=== PATIENT | female | born 1935 | race Caucasian/White ===

== ENCOUNTER 2018-01-09 11:45 | Inpatient (IN) | payer OTHER, MEDICAID ==
[~2018-01-09] VITALS: Ht 157.5 cm; Wt 94.8 kg
[2018-01-09 11:45] VITALS: BP_SYST 185
[~2018-01-09 11:45] MED LIST: AMLO2.5T50 PO; ATEN-41 PO; DEXL60CA3 PO; HYDR12.55 PO; IBUP-1969 PO; LEVO250T58 PO; MIRT15TA7 PO; PREG75CA PO; ROSU10TA PO; SITA1TBM4 PO; VALS160T2 PO
[2018-01-09] MEDS ORDERED: VECURONIUM BROMIDE 10 MG/VIAL (NORCURON) IV ONE (11:46)
[2018-01-09] MEDS ORDERED: ETOMIDATE 20 MG/ 10 ML VIAL (AMIDATE) IVP ONE (11:46)
[2018-01-09] MEDS ORDERED: ONDANSETRON HCL 4 MG/2 ML VIAL IVP ONE (12:00)
[2018-01-09] MEDS ORDERED: MORPHINE 2 MG/ML INJ. SYRINGE IVP ONE ×2 (12:00→13:15)
[2018-01-09 12:17] LABS: EOSINOPHILS # (AUTO) 0.1 K/uL (0.0-0.4); LYMPHOCYTES # (AUTO) 1.4 K/uL (1.0-5.5); MONOCYTES # (AUTO) 0.5 K/uL (0.0-1.0); RED BLOOD CELL COUNT(AUTO) 5.55 MIL/uL (4.2-6.2)
[2018-01-09 12:19] LABS: BASOPHILS # (AUTO) 0.1 K/uL (0.0-0.2); BASOPHILS % (AUTO) 0.6 % (0.0-2.0); EOSINOPHILS % (AUTO) 0.7 % (0.0-4.0); HEMATOCRIT 37.6 % (36-48); HEMOGLOBIN 11.7 g/dL (12.0-16.0); LYMPHOCYTES % (AUTO) 15.8 % (20.5-51.5); MEAN CORPUSCULAR HEMOGLOBIN 21 pg (27-31); MEAN CORPUSCULAR HGB CONC 31 % (32-36); MEAN CORPUSCULAR VOLUME 68 fL (79.0-98.0); MONOCYTES % (AUTO) 5.2 % (1.7-9.3); NEUTROPHILS # (AUTO) 6.7 K/uL (1.8-7.7); NEUTROPHILS % (AUTO) 77.7 % (40.0-70.0); PLATELET COUNT (AUTO) 284 K/uL (130-430); RED CELL DISTRIBUTION WIDTH 20.8 % (9.0-15.0); WHITE BLOOD COUNT (AUTO) 8.8 K/uL (4.8-10.8)
[2018-01-09 12:20] LABS: ANION GAP 11 (5-15); CALCIUM 9.5 mg/dL (8.4-11.0); CHLORIDE 98 mmol/L (98-107); CREATININE 1.27 mg/dL (0.55-1.30); GLUCOSE 268 mg/dL (70-99); POTASSIUM 4.1 mmol/L (3.5-5.1); SODIUM SERUM 135 mmol/L (136-145); UREA NITROGEN, BLOOD 26 mg/dL (8-21)
[2018-01-09 12:25] LABS: ALANINE AMINOTRANSFERASE 26 U/L (12-78); ASPARTATE AMINOTRANSFERASE 15 U/L (10-37); LIPASE 64 U/L (73-393); PROTHROMBIN TIME 10.5 SECS (9.5-12.5); TOTAL BILIRUBIN 0.6 mg/dL (0.0-1.0)
[2018-01-09] MEDS ORDERED: FAMOTIDINE PF 20 MG/2 ML VIAL IVP ONE (13:45)
[2018-01-09 15:26] LABS: BILIRUBIN,URINE NEGATIVE (NEGATIVE); BLOOD, URINE NEGATIVE (NEGATIVE); CLARITY/URINE CLEAR (CLEAR); COLOR,URINE YELLOW (YELLOW); GLUCOSE,URINE 3+ (NEGATIVE); KETONES,URINE NEGATIVE (NEGATIVE); LEUKOCYTE ESTERASE ,URINE NEGATIVE (NEGATIVE); NITRITE, URINE NEGATIVE (NEGATIVE); PROTEIN URINE NEGATIVE (NEGATIVE); UROBILINOGEN,URINE 0.2 (0.2-1.0)
[2018-01-09] MEDS ORDERED: ONDANSETRON HCL 4 MG/2 ML VIAL IVP PRN (15:30)
[2018-01-09 15:46] VITALS: BP_SYST 141
[2018-01-09 15:58] LABS: BACTERIA,URINE FEW /HPF (None Seen); MUCUS,URINE None Seen /LPF (None Seen); RBC,URINE NONE SEEN /HPF (0-3); WBC,URINE 0-3 /HPF (0-3)
[2018-01-09 16:00] VITALS: BP_SYST 141
[2018-01-09 20:10] VITALS: BP_SYST 147
[2018-01-09] MEDS: MORPHINE 4 MG/ML INJ. SYRINGE IVP PRN (20:56)
[2018-01-09] MEDS ORDERED: PANTOPRAZOLE SODIUM 40 MG/VIAL (PROTONIX) IVP ONE (21:00)
[2018-01-09] MEDS ORDERED: PREGABALIN 75 MG CAPSULE (LYRICA) PO ONE (21:30)
[2018-01-09] MEDS ORDERED: VALSARTAN 160 MG TABLET (DIOVAN) PO ONE (21:30)
[2018-01-09] MEDS ORDERED: amLODIPine BESYLATE 5 MG TABLET PO ONE (21:30)
[2018-01-09] MEDS: D5/0.45 NS 1,000 ML IV SCH (22:59)
[2018-01-09] MEDS: ZOLPIDEM TARTRATE 5 MG TABLET PO PRN (23:00)
[2018-01-10 04:10] VITALS: BP_SYST 132
[2018-01-10] MEDS ORDERED: SIMETHICONE 40 MG/0.6 ML ML ONE (07:10)
[2018-01-10] MEDS ORDERED: fentaNYL CITRATE/PF 100 MCG/2 ML AMP ONE (07:10)
[2018-01-10] MEDS ORDERED: MIDAZOLAM HCL 5 MG/5 ML VIAL ONE (07:10)
[2018-01-10 08:40] VITALS: BP_SYST 141
[2018-01-10] MEDS: PANTOPRAZOLE SODIUM 40 MG/VIAL (PROTONIX) IVP SCH (10:59)
[2018-01-10] MEDS: MORPHINE 4 MG/ML INJ. SYRINGE IVP PRN ×3 (11:33→23:32)
[2018-01-10 12:35] VITALS: BP_SYST 159
[2018-01-10] MEDS: D5/0.45 NS 1,000 ML IV SCH (15:52)
[2018-01-10 16:35] VITALS: BP_SYST 152
[2018-01-10] MEDS: INSULIN REGULAR, HUMAN 100 UNITS/ML, 10 ML VIAL (novoLIN R) SUBCUT PRN ×2 (17:09→20:55)
[2018-01-10 19:00] VITALS: BP_SYST 135
[2018-01-10 20:00] VITALS: BP_SYST 135
[2018-01-10] MEDS ORDERED: MIRTAZAPINE 15 MG TABLET PO PRN (21:30)
[2018-01-10] MEDS ORDERED: ROSUVASTATIN CALCIUM 5 MG/TAB (CRESTOR) PO SCH (21:30)
[2018-01-10] MEDS ORDERED: IBUPROFEN 600 MG TABLET PO PRN (21:30)
[2018-01-10] MEDS ORDERED: LOSARTAN POTASSIUM 50 MG TABLET (COZAAR) PO SCH (21:30)
[2018-01-10] MEDS: PREGABALIN 75 MG CAPSULE (LYRICA) PO SCH (23:29)
[2018-01-10] MEDS: ATENOLOL 25 MG TABLET(TENORMIN) PO SCH (23:30)
[2018-01-10] MEDS: ZOLPIDEM TARTRATE 5 MG TABLET PO PRN (23:33)
[2018-01-11 00:20] VITALS: BP_SYST 176
[2018-01-11] MEDS: D5/0.45 NS 1,000 ML IV SCH ×2 (02:06→11:13)
[2018-01-11 04:14] VITALS: BP_SYST 161
[2018-01-11] MEDS: MORPHINE 4 MG/ML INJ. SYRINGE IVP PRN ×2 (06:54→19:19)
[2018-01-11 07:35] VITALS: BP_SYST 148
[2018-01-11] MEDS: PANTOPRAZOLE SODIUM 40 MG/VIAL (PROTONIX) IVP SCH (10:52)
[2018-01-11] MEDS: ATENOLOL 25 MG TABLET(TENORMIN) PO SCH (10:53)
[2018-01-11] MEDS: PREGABALIN 75 MG CAPSULE (LYRICA) PO SCH ×2 (10:53→21:07)
[2018-01-11] MEDS: INSULIN REGULAR, HUMAN 100 UNITS/ML, 10 ML VIAL (novoLIN R) SUBCUT PRN ×3 (11:10→21:12)
[2018-01-11 12:12] VITALS: BP_SYST 140
[2018-01-11] MEDS ORDERED: VALSARTAN 160 MG TABLET (DIOVAN) PO ONE (13:00)
[2018-01-11 16:00] VITALS: BP_SYST 149
[2018-01-11 19:10] LABS: ANION GAP 10 (5-15); CALCIUM 8.6 mg/dL (8.4-11.0); CHLORIDE 103 mmol/L (98-107); CREATININE 1.09 mg/dL (0.55-1.30); GLUCOSE 251 mg/dL (70-99); POTASSIUM 3.3 mmol/L (3.5-5.1); SODIUM SERUM 138 mmol/L (136-145); UREA NITROGEN, BLOOD 17 mg/dL (8-21)
[2018-01-11 19:25] VITALS: BP_SYST 156
[2018-01-11] MEDS: ATORVASTATIN 20 MG TABLET PO SCH (21:07)
[2018-01-11] MEDS: ZOLPIDEM TARTRATE 5 MG TABLET PO PRN (21:07)
[2018-01-12 00:08] VITALS: BP_SYST 137
[2018-01-12] MEDS: MORPHINE 4 MG/ML INJ. SYRINGE IVP PRN ×3 (04:48→20:55)
[2018-01-12] MEDS: D5/0.45 NS 1,000 ML IV SCH ×2 (06:04→14:39)
[2018-01-12] MEDS: INSULIN REGULAR, HUMAN 100 UNITS/ML, 10 ML VIAL (novoLIN R) SUBCUT PRN ×4 (06:08→21:03)
[2018-01-12 06:49] LABS: BASOPHILS % (AUTO) 0.5 % (0.0-2.0); EOSINOPHILS # (AUTO) 0.5 K/uL (0.0-0.4); HEMATOCRIT 34.9 % (36-48); HEMOGLOBIN 11.1 g/dL (12.0-16.0); LYMPHOCYTES # (AUTO) 1.9 K/uL (1.0-5.5); LYMPHOCYTES % (AUTO) 20.3 % (20.5-51.5); MEAN CORPUSCULAR HEMOGLOBIN 22 pg (27-31); MEAN CORPUSCULAR HGB CONC 32 % (32-36); MEAN CORPUSCULAR VOLUME 69 fL (79.0-98.0); MONOCYTES # (AUTO) 0.8 K/uL (0.0-1.0); MONOCYTES % (AUTO) 8.3 % (1.7-9.3); NEUTROPHILS # (AUTO) 6.1 K/uL (1.8-7.7); NEUTROPHILS % (AUTO) 65.9 % (40.0-70.0); PLATELET COUNT (AUTO) 250 K/uL (130-430); RED BLOOD CELL COUNT(AUTO) 5.05 MIL/uL (4.2-6.2); RED CELL DISTRIBUTION WIDTH 20.4 % (9.0-15.0); WHITE BLOOD COUNT (AUTO) 9.3 K/uL (4.8-10.8)
[2018-01-12 06:51] LABS: ANION GAP 8 (5-15); CALCIUM 8.4 mg/dL (8.4-11.0); CHLORIDE 103 mmol/L (98-107); CREATININE 1.07 mg/dL (0.55-1.30); GLUCOSE 221 mg/dL (70-99); POTASSIUM 3.3 mmol/L (3.5-5.1); SODIUM SERUM 136 mmol/L (136-145); UREA NITROGEN, BLOOD 17 mg/dL (8-21)
[2018-01-12 08:00] VITALS: BP_SYST 138
[2018-01-12] MEDS: PREGABALIN 75 MG CAPSULE (LYRICA) PO SCH ×2 (08:44→20:54)
[2018-01-12] MEDS: VALSARTAN 160 MG TABLET (DIOVAN) PO SCH (08:44)
[2018-01-12] MEDS: PANTOPRAZOLE SODIUM 40 MG/VIAL (PROTONIX) IVP SCH (08:44)
[2018-01-12] MEDS: ATENOLOL 25 MG TABLET(TENORMIN) PO SCH (08:45)
[2018-01-12] MEDS ORDERED: IOHEXOL 350 mgI/mL, 150 ML INFUS..BTL IV ONE (09:55)
[2018-01-12] MEDS: METOCLOPRAMIDE HCL 10 MG/2 ML VIAL IVP SCH ×3 (12:02→23:40)
[2018-01-12 12:53] VITALS: BP_SYST 158
[2018-01-12] MEDS ORDERED: POTASSIUM CHLORIDE 20 MEQ TAB.PRT.SR PO ONE (17:00)
[2018-01-12 17:25] VITALS: BP_SYST 168
[2018-01-12 20:00] VITALS: BP_SYST 156
[2018-01-12] MEDS: ATORVASTATIN 20 MG TABLET PO SCH (20:54)
[2018-01-12] MEDS: ZOLPIDEM TARTRATE 5 MG TABLET PO PRN (22:35)
[2018-01-13 00:18] VITALS: BP_SYST 135
[2018-01-13] MEDS: METOCLOPRAMIDE HCL 10 MG/2 ML VIAL IVP SCH ×2 (06:17→11:50)
[2018-01-13] MEDS: INSULIN REGULAR, HUMAN 100 UNITS/ML, 10 ML VIAL (novoLIN R) SUBCUT PRN ×2 (06:19→11:47)
[2018-01-13 08:00] VITALS: BP_SYST 166
[2018-01-13] MEDS: PANTOPRAZOLE SODIUM 40 MG/VIAL (PROTONIX) IVP SCH (08:18)
[2018-01-13] MEDS: ATENOLOL 25 MG TABLET(TENORMIN) PO SCH (08:19)
[2018-01-13] MEDS: VALSARTAN 160 MG TABLET (DIOVAN) PO SCH (08:19)
[2018-01-13] MEDS: PREGABALIN 75 MG CAPSULE (LYRICA) PO SCH (08:20)
[2018-01-13] MEDS: MORPHINE 4 MG/ML INJ. SYRINGE IVP PRN (08:29)
[2018-01-13] MEDS ORDERED: SUCRALFATE 1 GM TABLET PO ONE (09:30)
[2018-01-13 11:18] VITALS: BP_SYST 160
[2018-01-13 11:57] VITALS: BP_SYST 160
[2018-01-13] MEDS ORDERED: SUCRALFATE 1 GM TABLET PO SCH (15:00)
== END 2018-01-13 12:37 | disposition home or self-care (01) | DRG 392 ==
LOC: EDBD 11:45 → SED 11:45 → SMU 14:49
PROVIDERS: ADMIT Family Medicine; ATTEND Family Medicine
PROC: 0DB68ZX Excision of Stomach, Via Natural or Artificial Opening Endoscopic, Diagnostic (ICD-10-PCS; 2018-01-10)
PROC: 0DB58ZX Excision of Esophagus, Via Natural or Artificial Opening Endoscopic, Diagnostic (ICD-10-PCS; 2018-01-10)
PROC: 0DB98ZX Excision of Duodenum, Via Natural or Artificial Opening Endoscopic, Diagnostic (ICD-10-PCS; principal; 2018-01-10 08:00)
DX: K29.60 Other gastritis without bleeding (principal); I10 Essential (primary) hypertension; E78.00 Pure hypercholesterolemia, unspecified; E11.9 Type 2 diabetes mellitus without complications; E78.5 Hyperlipidemia, unspecified; I25.10 Atherosclerotic heart disease of native coronary artery without angina pectoris; K21.9 Gastro-esophageal reflux disease without esophagitis; F32.9 Major depressive disorder, single episode, unspecified; E07.9 Disorder of thyroid, unspecified; Z95.1 Presence of aortocoronary bypass graft
CPT/HCPCS: 36415; 43239; 71045; 72191; 74175; 76700-TC; 78264-TC; 80048; 80053; 81000-TC; 82962; 83690-TC; 83880; 84484; 85025; 85610-TC; 85730-TC; 87081; 88305; 88312; 88313; 93005; 96374; 96375; 96376; 99285; A9541; C9113; J2250; J2270; J2405; J2765; J3010; J3490; J7030; Q9967

== ENCOUNTER 2018-05-01 09:57 | Outpatient (CLI) | payer OTHER, MEDICAID ==
[~2018-05-01 09:57] MED LIST changes: +ATEN-166 PO; +CLOP75TA2 PO; -DEXL60CA3 PO; +DEXL60CA4 PO; +GLIP10TA11 PO; -IBUP-1969 PO; +LEVO125T8 PO; -LEVO250T58 PO; +LINA5TAB2 PO; +MIRT30TA3 PO; +SER25 PO; +TRAM50TA92 PO
== END 2018-05-01 13:00 | disposition home or self-care (01) ==
LOC: SUS 09:57
PROVIDERS: ATTEND Internal Medicine
DX: I70.202 Unspecified atherosclerosis of native arteries of extremities, left leg (principal); I70.201 Unspecified atherosclerosis of native arteries of extremities, right leg
CPT/HCPCS: 93923; 93970

== ENCOUNTER 2018-09-22 15:15 | Inpatient (IN) | payer OTHER, MEDICAID ==
[~2018-09-22] VITALS: Ht 160 cm; Wt 91.2 kg
[2018-09-22 15:22] VITALS: BP_SYST 166
[2018-09-22] MEDS ORDERED: NACL 0.9% 1,000 ML IV ONE (15:38)
[2018-09-22] MEDS ORDERED: ONDANSETRON HCL 4 MG/2 ML VIAL IVP ONE (15:45)
[2018-09-22] MEDS ORDERED: MORPHINE 4 MG/ML INJ. SYRINGE IVP ONE ×2 (15:45→18:00)
[2018-09-22 16:25] LABS: HEMATOCRIT 40.7 % (36-48); MEAN CORPUSCULAR VOLUME 75 fL (79.0-98.0); RED BLOOD CELL COUNT(AUTO) 5.42 MIL/uL (4.2-6.2); WHITE BLOOD COUNT (AUTO) 11.4 K/uL (4.8-10.8)
[2018-09-22 16:26] LABS: BASOPHILS % (AUTO) 0.3 % (0.0-2.0); LYMPHOCYTES # (AUTO) 1.1 K/uL (1.0-5.5); LYMPHOCYTES % (AUTO) 9.9 % (20.5-51.5); MEAN CORPUSCULAR HEMOGLOBIN 24 pg (27-31); MEAN CORPUSCULAR HGB CONC 32 % (32-36); MONOCYTES # (AUTO) 0.2 K/uL (0.0-1.0); MONOCYTES % (AUTO) 1.4 % (1.7-9.3); NEUTROPHILS # (AUTO) 10.1 K/uL (1.8-7.7); NEUTROPHILS % (AUTO) 88.4 % (40.0-70.0); PLATELET COUNT (AUTO) 315 K/uL (130-430); RED CELL DISTRIBUTION WIDTH 20.6 % (9.0-15.0)
[2018-09-22 16:32] LABS: ANION GAP 13 (5-15); CALCIUM 8.8 mg/dL (8.4-11.0); CHLORIDE 100 mmol/L (98-107); CREATININE 1.61 mg/dL (0.55-1.30); GLUCOSE 199 mg/dL (70-99); POTASSIUM 4.5 mmol/L (3.5-5.1); SODIUM SERUM 135 mmol/L (136-145); UREA NITROGEN, BLOOD 47 mg/dL (8-21)
[2018-09-22 16:38] LABS: ALANINE AMINOTRANSFERASE 38 U/L (12-78); ALBUMIN 3.8 g/dL (3.4-4.8); AMYLASE 36 U/L (0-100); ASPARTATE AMINOTRANSFERASE 15 U/L (10-37); LIPASE 74 U/L (73-393); TOTAL BILIRUBIN 0.3 mg/dL (0.0-1.0)
[2018-09-22 17:03] LABS: BILIRUBIN,URINE NEGATIVE (NEGATIVE); BLOOD, URINE NEGATIVE (NEGATIVE); CLARITY/URINE CLEAR (CLEAR); COLOR,URINE YELLOW (YELLOW); GLUCOSE,URINE 3+ (NEGATIVE); KETONES,URINE NEGATIVE (NEGATIVE); LEUKOCYTE ESTERASE ,URINE 1+ (NEGATIVE); NITRITE, URINE NEGATIVE (NEGATIVE); PROTEIN URINE NEGATIVE (NEGATIVE); UROBILINOGEN,URINE 0.2 (0.2-1.0)
[2018-09-22 17:15] LABS: BACTERIA,URINE FEW /HPF (None Seen); RBC,URINE 0-3 /HPF (0-3)
[2018-09-22 17:16] LABS: MUCUS,URINE None Seen /LPF (None Seen)
[2018-09-22] MEDS ORDERED: GABA-531 PO (17:48)
[2018-09-22] MEDS ORDERED: GLIP10TA PO (17:48)
[2018-09-22] MEDS ORDERED: VACEPA PO (17:48)
[2018-09-22] MEDS ORDERED: LINA5TAB2 PO (17:48)
[2018-09-22] MEDS ORDERED: PRED20TA PO (17:48)
[2018-09-22] MEDS ORDERED: QUET100T33 PO (17:48)
[2018-09-22] MEDS ORDERED: OLME1TAB16 PO (17:48)
[2018-09-22] MEDS ORDERED: DAPA1TAB5 PO (17:48)
[2018-09-22] MEDS ORDERED: INSU100I24 SQ (17:48)
[2018-09-22] MEDS ORDERED: MORP15TA60 PO (17:48)
[2018-09-22] MEDS ORDERED: ISOS40TA12 PO (17:48)
[2018-09-22] MEDS ORDERED: ICOS1CAP PO (17:48)
[2018-09-22] MEDS ORDERED: OMEP40CA33 PO (17:48)
[2018-09-22] MEDS ORDERED: ATEN50TA PO (17:48)
[2018-09-22] MEDS ORDERED: CELE200C PO (17:48)
[2018-09-22 17:55] LABS: PROTHROMBIN TIME 10.4 SECS (9.5-12.5)
[2018-09-22] MEDS ORDERED: cefTRIAXone 1 GM IVPB PREMIX 50 ML IV ONE (18:00)
[2018-09-22 19:37] VITALS: BP_SYST 152
[2018-09-22] MEDS ORDERED: ACETAMINOPHEN 325 MG TABLET PO PRN (21:00)
[2018-09-22] MEDS ORDERED: HEPARIN 25,000 UNITS/D5W 250ML 250 ML IV PRN (21:00)
[2018-09-22] MEDS ORDERED: OMEPRAZOLE 20 MG CAPSULE.DR (PriLOSEC) PO SCH (21:30)
[2018-09-22] MEDS ORDERED: MORPHINE 4 MG/ML INJ. SYRINGE IVP SCH (21:30)
[2018-09-22] MEDS ORDERED: LEVOFLOXACIN 500 MG/D5W 100 ML IV ONE ×2 (21:30→22:56)
[2018-09-22] MEDS ORDERED: HEPARIN SODIUM,PORCINE 2000 UNITS/0.4 ML BOLUS IVP PRN (21:30)
[2018-09-22] MEDS ORDERED: HEPARIN SODIUM,PORCINE 3000 UNITS/0.6 ML BOLUS IVP PRN (21:30)
[2018-09-22] MEDS ORDERED: MORPHINE SULFATE 15 MG TABLET.ER PO SCH (21:30)
[2018-09-22] MEDS ORDERED: MORPHINE SULFATE 10 MG/ML VIAL IVP SCH (21:30)
[2018-09-22] MEDS ORDERED: DEXTROSE 50% JECT 50 ML DISP.SYRIN IVP PRN (21:30)
[2018-09-22] MEDS ORDERED: ONDANSETRON HCL 4 MG/2 ML VIAL IVP PRN (21:45)
[2018-09-22] MEDS: 0.45% NACL 1,000 ML IV SCH (22:34)
[2018-09-22 22:55] VITALS: BP_SYST 159
[2018-09-22] MEDS: MORPHINE 4 MG/ML INJ. SYRINGE IVP PRN (22:58)
[2018-09-22] MEDS ORDERED: GABAPENTIN 100 MG CAPSULE PO ONE (23:00)
[2018-09-22] MEDS ORDERED: HEPARIN SODIUM,PORCINE 5000 UNITS/ML VIAL IVP SCH (23:00)
[2018-09-22] MEDS ORDERED: HYDROcodone/ACETAMIN 5-325 MG TAB (NORCO/ VICODIN) PO SCH (23:00)
[2018-09-22] MEDS ORDERED: QUEtiapine FUMARATE 25 MG TABLET PO ONE (23:00)
[2018-09-22] MEDS: cefTRIAXone 1 GM VIAL ONE ×2 (23:07→23:58)
[2018-09-22] MEDS: HEPARIN 25,000 UNITS in 250 ML PREMIX IV PRN (23:20)
[2018-09-23 02:20] VITALS: BP_SYST 149
[2018-09-23] MEDS: MORPHINE 4 MG/ML INJ. SYRINGE IVP PRN ×4 (02:50→22:24)
[2018-09-23] MEDS: INSULIN REGULAR, HUMAN 100 UNITS/ML, 10 ML VIAL (novoLIN R) SUBCUT PRN ×2 (06:23→20:15)
[2018-09-23] MEDS ORDERED: LEVOTHYROXINE SODIUM 0.15 MG TABLET PO SCH (07:00)
[2018-09-23] MEDS: glipiZIDE XL 5 MG TAB ( GLUCOTROL XL) PO SCH ×2 (07:43→11:19)
[2018-09-23 08:08] VITALS: BP_SYST 176
[2018-09-23] MEDS ORDERED: QUEtiapine FUMARATE 25 MG TABLET PO SCH (09:00)
[2018-09-23] MEDS ORDERED: GABAPENTIN 300 MG CAPSULE PO SCH (09:00)
[2018-09-23] MEDS ORDERED: ISOSORBIDE DINITRATE 60 MG PO SCH (09:00)
[2018-09-23] MEDS ORDERED: PREDNISONE 20 MG TABLET PO SCH (09:00)
[2018-09-23] MEDS: ISOSORBIDE DINITRATE 20 MG TABLET (ISORDIL) PO SCH (09:28)
[2018-09-23] MEDS: OMEPRAZOLE 20 MG CAPSULE.DR (PriLOSEC) PO SCH ×2 (09:28→20:12)
[2018-09-23] MEDS: CLOPIDOGREL BISULFATE 75 MG TABLET PO SCH (09:28)
[2018-09-23] MEDS: GABAPENTIN 100 MG CAPSULE PO SCH ×3 (09:29→20:13)
[2018-09-23] MEDS: ATENOLOL 25 MG TABLET(TENORMIN) PO SCH (09:29)
[2018-09-23] MEDS: DOCUSATE SODIUM 250 MG CAPSULE PO SCH ×2 (09:29→20:10)
[2018-09-23] MEDS: HYDROcodone/ACETAMIN 5-325 MG TAB (NORCO/ VICODIN) PO SCH ×3 (09:47→20:11)
[2018-09-23 11:31] VITALS: BP_SYST 123
[2018-09-23] MEDS: HEPARIN 25,000 UNITS in 250 ML PREMIX IV PRN ×2 (14:48→17:28)
[2018-09-23] MEDS: 0.45% NACL 1,000 ML IV SCH (15:15)
[2018-09-23 15:38] VITALS: BP_SYST 125
[2018-09-23] MEDS: QUEtiapine FUMARATE 25 MG TABLET PO SCH (17:13)
[2018-09-23] MEDS: cefTRIAXone 1 GM IVPB PREMIX 50 ML IV SCH (17:13)
[2018-09-23] MEDS ORDERED: BISACODYL 5 MG TABLET.DR (DULCOLAX) PO PRN (18:00)
[2018-09-23] MEDS ORDERED: BISACODYL 10 MG/SUPPOSITORY RC PRN (18:00)
[2018-09-23] MEDS ORDERED: BISACODYL 5 MG TABLET.DR (DULCOLAX) PO SCH (18:30)
[2018-09-23 20:00] VITALS: BP_SYST 127
[2018-09-23] MEDS: APIXABAN 2.5 MG TABLET PO SCH (20:12)
[2018-09-23 21:01] LABS: ANION GAP 7 (5-15); CALCIUM 7.8 mg/dL (8.4-11.0); CHLORIDE 102 mmol/L (98-107); CREATININE 1.14 mg/dL (0.55-1.30); GLUCOSE 120 mg/dL (70-99); SODIUM SERUM 133 mmol/L (136-145); UREA NITROGEN, BLOOD 37 mg/dL (8-21)
[2018-09-23 21:03] LABS: POTASSIUM 4.2 mmol/L (3.5-5.1)
[2018-09-23 23:57] VITALS: BP_SYST 147
[2018-09-24] MEDS: LEVOTHYROXINE SODIUM 0.15 MG TABLET PO SCH (06:28)
[2018-09-24] MEDS: INSULIN REGULAR, HUMAN 100 UNITS/ML, 10 ML VIAL (novoLIN R) SUBCUT PRN ×3 (06:29→21:42)
[2018-09-24] MEDS: MORPHINE 4 MG/ML INJ. SYRINGE IVP PRN ×2 (06:30→16:19)
[2018-09-24] MEDS ORDERED: LEVOTHYROXINE SODIUM 0.15 MG TABLET PO SCH (07:00)
[2018-09-24 07:43] LABS: HEMATOCRIT 37.7 % (36-48); MEAN CORPUSCULAR HEMOGLOBIN 24 pg (27-31); MEAN CORPUSCULAR HGB CONC 32 % (32-36); MEAN CORPUSCULAR VOLUME 76 fL (79.0-98.0); PLATELET COUNT (AUTO) 265 K/uL (130-430); RED BLOOD CELL COUNT(AUTO) 4.94 MIL/uL (4.2-6.2); RED CELL DISTRIBUTION WIDTH 20.6 % (9.0-15.0); WHITE BLOOD COUNT (AUTO) 8.7 K/uL (4.8-10.8)
[2018-09-24 07:50] LABS: ANION GAP 11 (5-15); CALCIUM 7.7 mg/dL (8.4-11.0); CHLORIDE 105 mmol/L (98-107); CREATININE 1.04 mg/dL (0.55-1.30); GLUCOSE 81 mg/dL (70-99); SODIUM SERUM 139 mmol/L (136-145); UREA NITROGEN, BLOOD 32 mg/dL (8-21)
[2018-09-24 08:11] VITALS: BP_SYST 131
[2018-09-24] MEDS: glipiZIDE XL 5 MG TAB ( GLUCOTROL XL) PO SCH ×2 (08:14→11:57)
[2018-09-24] MEDS: GABAPENTIN 100 MG CAPSULE PO SCH ×3 (08:16→21:31)
[2018-09-24] MEDS: OMEPRAZOLE 20 MG CAPSULE.DR (PriLOSEC) PO SCH ×2 (08:16→21:30)
[2018-09-24] MEDS: ISOSORBIDE DINITRATE 20 MG TABLET (ISORDIL) PO SCH (08:16)
[2018-09-24] MEDS: DOCUSATE SODIUM 250 MG CAPSULE PO SCH ×2 (08:17→21:30)
[2018-09-24] MEDS: HYDROcodone/ACETAMIN 5-325 MG TAB (NORCO/ VICODIN) PO SCH ×3 (08:17→21:30)
[2018-09-24] MEDS: CLOPIDOGREL BISULFATE 75 MG TABLET PO SCH (08:18)
[2018-09-24] MEDS: ATENOLOL 25 MG TABLET(TENORMIN) PO SCH (08:18)
[2018-09-24] MEDS: APIXABAN 2.5 MG TABLET PO SCH ×2 (08:19→21:36)
[2018-09-24 08:20] LABS: THYROID STIMULATING HORMONE 0.63 uIu/mL (0.36-3.74)
[2018-09-24] MEDS: 0.45% NACL 1,000 ML IV SCH (09:59)
[2018-09-24 11:52] VITALS: BP_SYST 140
[2018-09-24 12:08] LABS: BASOPHILS % (MANUAL) 0 % (0-2); EOSINOPHILS % (MANUAL) 3 % (0-7); LYMPHOCYTES % (MANUAL) 35 % (20-46); MONOCYTES % (MANUAL) 10 % (0-11)
[2018-09-24 15:38] VITALS: BP_SYST 145
[2018-09-24] MEDS ORDERED: CIPROFLOXACIN HCL 500 MG TABLET PO ONE (16:30)
[2018-09-24] MEDS ORDERED: MORPHINE SULFATE 30 MG Immediate Release TABLET PO PRN (16:30)
[2018-09-24] MEDS: QUEtiapine FUMARATE 25 MG TABLET PO SCH (17:30)
[2018-09-24] MEDS: cefTRIAXone 1 GM IVPB PREMIX 50 ML IV SCH (17:30)
[2018-09-24 20:00] VITALS: BP_SYST 146
[2018-09-24] MEDS: CIPROFLOXACIN HCL 500 MG TABLET PO SCH (21:30)
[2018-09-25 00:53] VITALS: BP_SYST 129
[2018-09-25] MEDS: MORPHINE 4 MG/ML INJ. SYRINGE IVP PRN ×3 (01:50→10:28)
[2018-09-25] MEDS: LEVOTHYROXINE SODIUM 0.15 MG TABLET PO SCH (06:31)
[2018-09-25] MEDS: 0.45% NACL 1,000 ML IV SCH (06:37)
[2018-09-25 08:10] VITALS: BP_SYST 157
[2018-09-25] MEDS: OMEPRAZOLE 20 MG CAPSULE.DR (PriLOSEC) PO SCH ×2 (08:15→20:29)
[2018-09-25] MEDS: DOCUSATE SODIUM 250 MG CAPSULE PO SCH ×2 (08:18→20:28)
[2018-09-25] MEDS: APIXABAN 2.5 MG TABLET PO SCH ×2 (08:18→20:31)
[2018-09-25] MEDS: HYDROcodone/ACETAMIN 5-325 MG TAB (NORCO/ VICODIN) PO SCH ×3 (08:18→20:30)
[2018-09-25] MEDS: GABAPENTIN 100 MG CAPSULE PO SCH ×3 (08:19→20:29)
[2018-09-25] MEDS: glipiZIDE XL 5 MG TAB ( GLUCOTROL XL) PO SCH ×2 (08:19→11:53)
[2018-09-25] MEDS: ATENOLOL 25 MG TABLET(TENORMIN) PO SCH (08:19)
[2018-09-25] MEDS: CLOPIDOGREL BISULFATE 75 MG TABLET PO SCH (08:19)
[2018-09-25] MEDS: ISOSORBIDE DINITRATE 20 MG TABLET (ISORDIL) PO SCH (08:20)
[2018-09-25] MEDS: CIPROFLOXACIN HCL 500 MG TABLET PO SCH ×2 (10:28→20:39)
[2018-09-25] MEDS: INSULIN REGULAR, HUMAN 100 UNITS/ML, 10 ML VIAL (novoLIN R) SUBCUT PRN ×3 (11:52→20:55)
[2018-09-25 12:11] VITALS: BP_SYST 134
[2018-09-25 16:54] VITALS: BP_SYST 129
[2018-09-25] MEDS: QUEtiapine FUMARATE 25 MG TABLET PO SCH (17:24)
[2018-09-25] MEDS: cefTRIAXone 1 GM IVPB PREMIX 50 ML IV SCH (17:24)
[2018-09-25 19:55] VITALS: BP_SYST 121
[2018-09-25 21:01] VITALS: BP_SYST 121
== END 2018-09-25 21:33 | disposition home or self-care (01) | DRG 871 ==
LOC: SED 15:15 → SMU 18:00 → STU 21:30 → SMU 09-25 16:07
PROVIDERS: ADMIT Internal Medicine; ATTEND Internal Medicine
DX: A41.9 Sepsis, unspecified organism (principal); N17.0 Acute kidney failure with tubular necrosis; N39.0 Urinary tract infection, site not specified; I82.431 Acute embolism and thrombosis of right popliteal vein; E03.9 Hypothyroidism, unspecified; E11.42 Type 2 diabetes mellitus with diabetic polyneuropathy; E78.5 Hyperlipidemia, unspecified; G89.4 Chronic pain syndrome; I10 Essential (primary) hypertension; E78.00 Pure hypercholesterolemia, unspecified; F32.9 Major depressive disorder, single episode, unspecified; E86.0 Dehydration; M48.07 Spinal stenosis, lumbosacral region; I25.10 Atherosclerotic heart disease of native coronary artery without angina pectoris; Z79.4 Long term (current) use of insulin; Z95.1 Presence of aortocoronary bypass graft; Z79.899 Other long term (current) drug therapy
CPT/HCPCS: 36415; 71045; 72146; 72148; 80048; 80053; 81000-TC; 82150-TC; 82550-TC; 82962; 83036; 83605; 83690-TC; 83880; 84439; 84443-TC; 84484; 85007; 85025; 85027; 85379; 85610-TC; 85730-TC; 87040-TC; 87086; 87186-TC; 93005; 93971; 96365; 96375; 96376; 97110-GP; 97116-GP; 97530-GP; 99285; G0378; J0696; J1644; J1956; J2270; J2274; J2405

== ENCOUNTER 2018-10-22 11:43 | Outpatient (CLI) | payer OTHER, MEDICAID ==
[~2018-10-22 11:43] MED LIST changes: -AMLO2.5T50 PO; -ATEN-166 PO; +ATEN50TA PO; +DAPA1TAB5 PO; -DEXL60CA4 PO; +GABA-531 PO; +GLIP10TA PO; -HYDR12.55 PO; +ICOS1CAP PO; +INSU100I24 SQ; +ISOS40TA12 PO; -MIRT30TA3 PO; +MORP15TA60 PO; +OLME1TAB16 PO; +OMEP40CA33 PO; -PREG75CA PO; +QUET100T33 PO; -SITA1TBM4 PO; -TRAM50TA92 PO; +VACEPA PO; -VALS160T2 PO
== END 2018-10-22 21:08 | disposition home or self-care (01) ==
LOC: SRD 11:43
PROVIDERS: ATTEND Internal Medicine
DX: Z12.31 Encounter for screening mammogram for malignant neoplasm of breast (principal)
CPT/HCPCS: 77067

== ENCOUNTER 2019-01-05 11:15 | Inpatient (IN) | payer OTHER, MEDICAID ==
[~2019-01-05] VITALS: Ht 152.4 cm; Wt 91.6 kg
[2019-01-05 11:15] VITALS: BP_SYST 176
[2019-01-05] MEDS ORDERED: NS 1000 ML IV.SOLN IV ONE (11:30)
[2019-01-05 11:47] LABS: BILIRUBIN,URINE NEGATIVE (NEGATIVE); BLOOD, URINE NEGATIVE (NEGATIVE); CLARITY/URINE CLEAR (CLEAR); COLOR,URINE YELLOW (YELLOW); GLUCOSE,URINE 3+ (NEGATIVE); KETONES,URINE NEGATIVE (NEGATIVE); LEUKOCYTE ESTERASE ,URINE NEGATIVE (NEGATIVE); NITRITE, URINE NEGATIVE (NEGATIVE); PH,URINE 5.5 (5.0-8.0); PROTEIN URINE 1+ (NEGATIVE); UROBILINOGEN,URINE 0.2 (0.2-1.0)
[2019-01-05 12:07] LABS: BACTERIA,URINE RARE /HPF (None Seen); RBC,URINE 0-3 /HPF (0-3); URINE AMORPHOUS URATE 1+ /HPF (None Seen); WBC,URINE 0-3 /HPF (0-3)
[2019-01-05 12:32] LABS: EOSINOPHILS # (AUTO) 0.2 K/uL (0.0-0.4); EOSINOPHILS % (AUTO) 2.9 % (0.0-4.0); HEMATOCRIT 40.2 % (36-48); HEMOGLOBIN 12.7 g/dL (12.0-16.0); LYMPHOCYTES # (AUTO) 1.5 K/uL (1.0-5.5); LYMPHOCYTES % (AUTO) 17.5 % (20.5-51.5); MEAN CORPUSCULAR HEMOGLOBIN 23 pg (27-31); MEAN CORPUSCULAR HGB CONC 32 % (32-36); MEAN CORPUSCULAR VOLUME 74 fL (79.0-98.0); MONOCYTES # (AUTO) 0.6 K/uL (0.0-1.0); MONOCYTES % (AUTO) 7.7 % (1.7-9.3); PLATELET COUNT (AUTO) 315 K/uL (130-430); RED BLOOD CELL COUNT(AUTO) 5.47 MIL/uL (4.2-6.2); RED CELL DISTRIBUTION WIDTH 18.3 % (9.0-15.0); WHITE BLOOD COUNT (AUTO) 8.4 K/uL (4.8-10.8)
[2019-01-05 12:39] LABS: BASOPHILS % (AUTO) 0.3 % (0.0-2.0); NEUTROPHILS % (AUTO) 71.6 % (40.0-70.0)
[2019-01-05 12:50] LABS: ANION GAP 8 (5-15); CALCIUM 9.3 mg/dL (8.4-11.0); CHLORIDE 105 mmol/L (98-107); CREATININE 1.26 mg/dL (0.55-1.30); GLUCOSE 189 mg/dL (70-99); POTASSIUM 4.9 mmol/L (3.5-5.1); SODIUM SERUM 136 mmol/L (136-145); UREA NITROGEN, BLOOD 36 mg/dL (8-21)
[2019-01-05 12:56] LABS: ALANINE AMINOTRANSFERASE 20 U/L (12-78); ALBUMIN 3.4 g/dL (3.4-4.8); ASPARTATE AMINOTRANSFERASE 11 U/L (10-37); TOTAL BILIRUBIN 0.3 mg/dL (0.0-1.0)
[2019-01-05] MEDS ORDERED: LORazepam 2 MG/ML VIAL (FOR ER USE) IVP ONE (13:15)
[2019-01-05] MEDS ORDERED: ONDANSETRON HCL 4 MG/2 ML VIAL IVP PRN (15:45)
[2019-01-05 16:36] VITALS: BP_SYST 148
[2019-01-05 16:54] VITALS: BP_SYST 148
[2019-01-05] MEDS: NACL 0.9% 1,000 ML IV SCH (17:43)
[2019-01-05] MEDS: ACETAMINOPHEN 325 MG TABLET PO PRN (17:55)
[2019-01-05] MEDS ORDERED: D5W 1,000 ML IV PRN (18:25)
[2019-01-05] MEDS ORDERED: DEXTROSE 50% JECT 50 ML DISP.SYRIN IVP PRN (18:30)
[2019-01-05] MEDS ORDERED: GLUCOSE 15 GM GEL (in 37.5 GM TUBE) PO PRN (18:30)
[2019-01-05 20:15] VITALS: BP_SYST 158
[2019-01-05] MEDS: GABAPENTIN 300 MG CAPSULE PO SCH (21:11)
[2019-01-05] MEDS: ISOSORBIDE DINITRATE 20 MG TABLET (ISORDIL) PO SCH (21:12)
[2019-01-05] MEDS: INSULIN REGULAR, HUMAN 100 UNITS/ML, 10 ML VIAL (humuLIN R) SUBCUT PRN (21:16)
[2019-01-06 00:16] VITALS: BP_SYST 150
[2019-01-06] MEDS: ACETAMINOPHEN 325 MG TABLET PO PRN ×5 (00:35→20:57)
[2019-01-06] MEDS: NACL 0.9% 1,000 ML IV SCH ×3 (00:39→20:57)
[2019-01-06] MEDS ORDERED: HEPARIN 25,000 UNITS/D5W 250ML 250 ML IV PRN (05:45)
[2019-01-06] MEDS: LEVOTHYROXINE SODIUM 0.125 MG TABLET PO SCH (05:55)
[2019-01-06] MEDS ORDERED: HEPARIN SODIUM,PORCINE 5000 UNITS/ML VIAL IVP SCH (07:00)
[2019-01-06 07:20] LABS: BASOPHILS # (AUTO) 0.1 K/uL (0.0-0.2); BASOPHILS % (AUTO) 1.1 % (0.0-2.0); EOSINOPHILS # (AUTO) 0.3 K/uL (0.0-0.4); HEMATOCRIT 36.5 % (36-48); HEMOGLOBIN 11.4 g/dL (12.0-16.0); LYMPHOCYTES % (AUTO) 22.2 % (20.5-51.5); MEAN CORPUSCULAR HEMOGLOBIN 23 pg (27-31); MEAN CORPUSCULAR HGB CONC 31 % (32-36); MEAN CORPUSCULAR VOLUME 73 fL (79.0-98.0); MONOCYTES # (AUTO) 0.8 K/uL (0.0-1.0); MONOCYTES % (AUTO) 8.6 % (1.7-9.3); NEUTROPHILS # (AUTO) 5.9 K/uL (1.8-7.7); NEUTROPHILS % (AUTO) 65.1 % (40.0-70.0); PLATELET COUNT (AUTO) 297 K/uL (130-430); RED BLOOD CELL COUNT(AUTO) 4.98 MIL/uL (4.2-6.2); RED CELL DISTRIBUTION WIDTH 17.9 % (9.0-15.0); WHITE BLOOD COUNT (AUTO) 9.1 K/uL (4.8-10.8)
[2019-01-06 08:13] VITALS: BP_SYST 121; BP_SYST 148
[2019-01-06] MEDS: ATENOLOL 50 MG TABLET (TENORMIN) PO SCH (08:34)
[2019-01-06] MEDS: CLOPIDOGREL BISULFATE 75 MG TABLET PO SCH (08:35)
[2019-01-06] MEDS: ISOSORBIDE DINITRATE 20 MG TABLET (ISORDIL) PO SCH ×3 (08:37→20:56)
[2019-01-06] MEDS: GABAPENTIN 300 MG CAPSULE PO SCH ×3 (08:37→20:56)
[2019-01-06] MEDS: LOSARTAN POTASSIUM 50 MG TABLET (COZAAR) PO SCH (08:37)
[2019-01-06] MEDS: HYDROCHLOROTHIAZIDE 12.5 MG CAPSULE (HCTZ) PO SCH (08:38)
[2019-01-06] MEDS ORDERED: ENOXAPARIN SODIUM 40 MG/0.4 ML SYRINGE SUBCUT SCH (09:00)
[2019-01-06] MEDS: ENOXAPARIN SODIUM 100 MG/ML SYRINGE SUBCUT SCH ×2 (10:44→21:10)
[2019-01-06 11:07] LABS: ANION GAP 9 (5-15); CALCIUM 8.5 mg/dL (8.4-11.0); CHLORIDE 107 mmol/L (98-107); CREATININE 1.05 mg/dL (0.55-1.30); GLUCOSE 106 mg/dL (70-99); PHOSPHORUS 3.5 mg/dL (2.7-4.5); POTASSIUM 4.4 mmol/L (3.5-5.1); SODIUM SERUM 138 mmol/L (136-145); UREA NITROGEN, BLOOD 26 mg/dL (8-21)
[2019-01-06] MEDS: INSULIN REGULAR, HUMAN 100 UNITS/ML, 10 ML VIAL (humuLIN R) SUBCUT PRN ×3 (11:26→21:11)
[2019-01-06 12:48] VITALS: BP_SYST 153
[2019-01-06 16:20] VITALS: BP_SYST 126
[2019-01-06 20:30] VITALS: BP_SYST 147
[2019-01-06] MEDS: INSULIN GLARGINE 100 UNITS/ML 10 ML VIAL SQ SCH (21:12)
[2019-01-07 00:02] VITALS: BP_SYST 150
[2019-01-07] MEDS: ACETAMINOPHEN 325 MG TABLET PO PRN ×3 (01:26→14:19)
[2019-01-07 04:39] LABS: BASOPHILS # (AUTO) 0.1 K/uL (0.0-0.2); BASOPHILS % (AUTO) 1.2 % (0.0-2.0); EOSINOPHILS # (AUTO) 0.4 K/uL (0.0-0.4); EOSINOPHILS % (AUTO) 3.3 % (0.0-4.0); HEMATOCRIT 36.1 % (36-48); HEMOGLOBIN 11.1 g/dL (12.0-16.0); LYMPHOCYTES % (AUTO) 16.8 % (20.5-51.5); MEAN CORPUSCULAR HEMOGLOBIN 23 pg (27-31); MEAN CORPUSCULAR HGB CONC 31 % (32-36); MEAN CORPUSCULAR VOLUME 74 fL (79.0-98.0); MONOCYTES # (AUTO) 0.9 K/uL (0.0-1.0); MONOCYTES % (AUTO) 7.6 % (1.7-9.3); NEUTROPHILS # (AUTO) 8.5 K/uL (1.8-7.7); NEUTROPHILS % (AUTO) 71.1 % (40.0-70.0); PLATELET COUNT (AUTO) 267 K/uL (130-430); RED BLOOD CELL COUNT(AUTO) 4.87 MIL/uL (4.2-6.2); RED CELL DISTRIBUTION WIDTH 18.3 % (9.0-15.0)
[2019-01-07 05:22] LABS: ALANINE AMINOTRANSFERASE 18 U/L (12-78); ANION GAP 8 (5-15); ASPARTATE AMINOTRANSFERASE 14 U/L (10-37); CALCIUM 8.3 mg/dL (8.4-11.0); CHLORIDE 106 mmol/L (98-107); CREATININE 1.01 mg/dL (0.55-1.30); GLUCOSE 139 mg/dL (70-99); POTASSIUM 3.9 mmol/L (3.5-5.1); SODIUM SERUM 135 mmol/L (136-145); THYROID STIMULATING HORMONE 0.09 uIu/mL (0.34-4.82); TOTAL BILIRUBIN 0.5 mg/dL (0.0-1.0); UREA NITROGEN, BLOOD 22 mg/dL (8-21)
[2019-01-07] MEDS: LEVOTHYROXINE SODIUM 0.125 MG TABLET PO SCH (05:38)
[2019-01-07] MEDS: NACL 0.9% 1,000 ML IV SCH (06:54)
[2019-01-07 08:00] VITALS: BP_SYST 157
[2019-01-07] MEDS: GABAPENTIN 300 MG CAPSULE PO SCH ×3 (08:19→20:37)
[2019-01-07] MEDS: ATENOLOL 50 MG TABLET (TENORMIN) PO SCH (08:20)
[2019-01-07] MEDS: ISOSORBIDE DINITRATE 20 MG TABLET (ISORDIL) PO SCH ×3 (08:21→20:37)
[2019-01-07] MEDS: LOSARTAN POTASSIUM 50 MG TABLET (COZAAR) PO SCH (08:22)
[2019-01-07] MEDS: CLOPIDOGREL BISULFATE 75 MG TABLET PO SCH (08:22)
[2019-01-07] MEDS: HYDROCHLOROTHIAZIDE 12.5 MG CAPSULE (HCTZ) PO SCH (08:22)
[2019-01-07] MEDS: ENOXAPARIN SODIUM 100 MG/ML SYRINGE SUBCUT SCH ×2 (08:23→20:38)
[2019-01-07 09:02] LABS: CHOLESTEROL 191 mg/dL (<200); HDL CHOLESTEROL 57 mg/dL (>55); LDL CHOLESTEROL 97 mg/dL (<100); TRIGLYCERIDES 158 mg/dL (30-150)
[2019-01-07] MEDS ORDERED: ASPI-1153 PO (11:36)
[2019-01-07] MEDS: ATORVASTATIN 20 MG TABLET PO SCH (14:16)
[2019-01-07] MEDS: INSULIN REGULAR, HUMAN 100 UNITS/ML, 10 ML VIAL (humuLIN R) SUBCUT PRN ×3 (14:27→20:36)
[2019-01-07 16:11] VITALS: BP_SYST 154
[2019-01-07 20:00] VITALS: BP_SYST 155
[2019-01-07] MEDS: INSULIN GLARGINE 100 UNITS/ML 10 ML VIAL SQ SCH (20:37)
[2019-01-07] MEDS ORDERED: ZOLPIDEM TARTRATE 5 MG TABLET PO PRN ×2 (21:30→21:45)
[2019-01-08 01:29] VITALS: BP_SYST 143
[2019-01-08 05:03] LABS: BASOPHILS # (AUTO) 0.1 K/uL (0.0-0.2); BASOPHILS % (AUTO) 0.8 % (0.0-2.0); EOSINOPHILS # (AUTO) 0.2 K/uL (0.0-0.4); EOSINOPHILS % (AUTO) 1.7 % (0.0-4.0); HEMATOCRIT 35.1 % (36-48); HEMOGLOBIN 10.9 g/dL (12.0-16.0); LYMPHOCYTES % (AUTO) 17.4 % (20.5-51.5); MEAN CORPUSCULAR HEMOGLOBIN 23 pg (27-31); MEAN CORPUSCULAR HGB CONC 31 % (32-36); MEAN CORPUSCULAR VOLUME 73 fL (79.0-98.0); MONOCYTES # (AUTO) 1.1 K/uL (0.0-1.0); MONOCYTES % (AUTO) 9.5 % (1.7-9.3); NEUTROPHILS # (AUTO) 8.2 K/uL (1.8-7.7); NEUTROPHILS % (AUTO) 70.6 % (40.0-70.0); PLATELET COUNT (AUTO) 261 K/uL (130-430); RED BLOOD CELL COUNT(AUTO) 4.79 MIL/uL (4.2-6.2); RED CELL DISTRIBUTION WIDTH 18.7 % (9.0-15.0); WHITE BLOOD COUNT (AUTO) 11.7 K/uL (4.8-10.8)
[2019-01-08] MEDS: LEVOTHYROXINE SODIUM 0.125 MG TABLET PO SCH (06:10)
[2019-01-08 06:41] LABS: ANION GAP 11 (5-15); CALCIUM 8.5 mg/dL (8.4-11.0); CHLORIDE 105 mmol/L (98-107); CREATININE 0.91 mg/dL (0.55-1.30); GLUCOSE 132 mg/dL (70-99); POTASSIUM 3.3 mmol/L (3.5-5.1); SODIUM SERUM 138 mmol/L (136-145); UREA NITROGEN, BLOOD 19 mg/dL (8-21)
[2019-01-08 07:34] VITALS: BP_SYST 184
[2019-01-08] MEDS: LOSARTAN POTASSIUM 50 MG TABLET (COZAAR) PO SCH (08:21)
[2019-01-08] MEDS: GABAPENTIN 300 MG CAPSULE PO SCH (08:21)
[2019-01-08] MEDS: ATENOLOL 50 MG TABLET (TENORMIN) PO SCH (08:22)
[2019-01-08] MEDS: ATORVASTATIN 20 MG TABLET PO SCH (08:22)
[2019-01-08] MEDS: ISOSORBIDE DINITRATE 20 MG TABLET (ISORDIL) PO SCH (08:22)
[2019-01-08] MEDS: CLOPIDOGREL BISULFATE 75 MG TABLET PO SCH (08:23)
[2019-01-08] MEDS: HYDROCHLOROTHIAZIDE 12.5 MG CAPSULE (HCTZ) PO SCH (08:23)
[2019-01-08] MEDS: ENOXAPARIN SODIUM 100 MG/ML SYRINGE SUBCUT SCH (08:24)
[2019-01-08] MEDS ORDERED: POTASSIUM CHLORIDE 20 MEQ/PKT PACKET PO ONE ×2 (08:30→10:15)
[2019-01-08] MEDS ORDERED: ASPIRIN 81 MG TABLET(ECOTRIN) PO ONE (10:15)
[2019-01-08] MEDS ORDERED: HYDROCHLOROTHIAZIDE 25 MG TABLET (HCTZ) PO ONE (10:15)
[2019-01-08] MEDS ORDERED: HYDROCHLOROTHIAZIDE 12.5 MG CAPSULE (HCTZ) PO ONE (10:15)
[2019-01-08 11:09] VITALS: BP_SYST 147
[2019-01-08] MEDS: INSULIN REGULAR, HUMAN 100 UNITS/ML, 10 ML VIAL (humuLIN R) SUBCUT PRN (11:27)
[2019-01-09] MEDS ORDERED: ASPIRIN 81 MG TABLET(ECOTRIN) PO SCH (09:00)
[2019-01-09] MEDS ORDERED: HYDROCHLOROTHIAZIDE 25 MG TABLET (HCTZ) PO SCH (09:00)
== END 2019-01-08 14:21 | disposition home health service (06) | DRG 280 ==
LOC: SED 11:15 → STU 15:34
PROVIDERS: ADMIT Family Medicine; ATTEND Family Medicine
DX: I21.4 Non-ST elevation (NSTEMI) myocardial infarction (principal); N17.0 Acute kidney failure with tubular necrosis; E11.42 Type 2 diabetes mellitus with diabetic polyneuropathy; E11.51 Type 2 diabetes mellitus with diabetic peripheral angiopathy without gangrene; I10 Essential (primary) hypertension; E78.00 Pure hypercholesterolemia, unspecified; F32.9 Major depressive disorder, single episode, unspecified; Z96.659 Presence of unspecified artificial knee joint; I25.10 Atherosclerotic heart disease of native coronary artery without angina pectoris; E03.9 Hypothyroidism, unspecified; E78.5 Hyperlipidemia, unspecified; E11.649 Type 2 diabetes mellitus with hypoglycemia without coma; G89.4 Chronic pain syndrome; Z79.899 Other long term (current) drug therapy; Z90.49 Acquired absence of other specified parts of digestive tract; Z95.1 Presence of aortocoronary bypass graft; Z90.710 Acquired absence of both cervix and uterus; Z79.1 Long term (current) use of non-steroidal anti-inflammatories (NSAID); Z79.4 Long term (current) use of insulin; Z79.890 Hormone replacement therapy; Z86.718 Personal history of other venous thrombosis and embolism; Z79.01 Long term (current) use of anticoagulants; Z82.1 Family history of blindness and visual loss
CPT/HCPCS: 36415; 70450-TC; 71045; 80048; 80053; 80061; 81000-TC; 82962; 83036; 83605; 83735-TC; 83880; 84100-TC; 84443-TC; 84484; 85025; 85730-TC; 87040-TC; 87086; 93005; 93306; 96374; 97110-GP; 97116-GP; 97530-GP; 99285; G0378; J1644; J1650; J1815; J2060; J7030

== ENCOUNTER 2019-02-07 13:17 | Emergency (ER) | payer OTHER, MEDICAID ==
[~2019-02-07] VITALS: Ht 157.5 cm; Wt 108.9 kg
[~2019-02-07 13:17] MED LIST changes: +ASPI-1153 PO; -ATEN-41 PO; -ROSU10TA PO; -SER25 PO; -VACEPA PO
[2019-02-07 13:30] VITALS: BP_SYST 166
[2019-02-07 14:35] LABS: ANION GAP 11 (5-15); BASOPHILS # (AUTO) 0.1 K/uL (0.0-0.2); BASOPHILS % (AUTO) 1.1 % (0.0-2.0); CALCIUM 9.3 mg/dL (8.4-11.0); CHLORIDE 99 mmol/L (98-107); CREATININE 1.39 mg/dL (0.55-1.30); EOSINOPHILS # (AUTO) 0.3 K/uL (0.0-0.4); EOSINOPHILS % (AUTO) 4.2 % (0.0-4.0); GLUCOSE 297 mg/dL (70-99); HEMATOCRIT 38.4 % (36-48); HEMOGLOBIN 12.1 g/dL (12.0-16.0); LYMPHOCYTES # (AUTO) 1.5 K/uL (1.0-5.5); LYMPHOCYTES % (AUTO) 21.7 % (20.5-51.5); MEAN CORPUSCULAR HEMOGLOBIN 23 pg (27-31); MEAN CORPUSCULAR HGB CONC 31 % (32-36); MEAN CORPUSCULAR VOLUME 74 fL (79.0-98.0); MONOCYTES # (AUTO) 0.6 K/uL (0.0-1.0); MONOCYTES % (AUTO) 9.1 % (1.7-9.3); NEUTROPHILS # (AUTO) 4.5 K/uL (1.8-7.7); NEUTROPHILS % (AUTO) 63.9 % (40.0-70.0); PLATELET COUNT (AUTO) 308 K/uL (130-430); POTASSIUM 5.1 mmol/L (3.5-5.1); RED BLOOD CELL COUNT(AUTO) 5.19 MIL/uL (4.2-6.2); SODIUM SERUM 133 mmol/L (136-145); UREA NITROGEN, BLOOD 38 mg/dL (8-21)
[2019-02-07 14:39] LABS: PROTHROMBIN TIME 9.8 SECS (9.5-12.5)
[2019-02-07 14:40] LABS: ALANINE AMINOTRANSFERASE 26 U/L (12-78); ALBUMIN 3.4 g/dL (3.4-4.8); ASPARTATE AMINOTRANSFERASE 13 U/L (10-37); TOTAL BILIRUBIN 0.2 mg/dL (0.0-1.0)
[2019-02-07 14:52] LABS: BILIRUBIN,URINE NEGATIVE (NEGATIVE); CLARITY/URINE CLEAR (CLEAR); COLOR,URINE YELLOW (YELLOW); GLUCOSE,URINE 3+ (NEGATIVE); KETONES,URINE NEGATIVE (NEGATIVE); LEUKOCYTE ESTERASE ,URINE NEGATIVE (NEGATIVE); NITRITE, URINE NEGATIVE (NEGATIVE); PROTEIN URINE NEGATIVE (NEGATIVE); UROBILINOGEN,URINE 0.2 (0.2-1.0)
[2019-02-07 14:53] LABS: BLOOD, URINE TRACE (NEGATIVE)
[2019-02-07 15:04] LABS: BACTERIA,URINE FEW /HPF (None Seen); WBC,URINE 0-3 /HPF (0-3)
[2019-02-07 15:21] VITALS: BP_SYST 166
== END 2019-02-07 15:21 | disposition home or self-care (01) ==
LOC: SED 13:17
DX: I63.9 Cerebral infarction, unspecified (principal); R03.0 Elevated blood-pressure reading, without diagnosis of hypertension; E11.9 Type 2 diabetes mellitus without complications; I10 Essential (primary) hypertension; E78.00 Pure hypercholesterolemia, unspecified; F32.9 Major depressive disorder, single episode, unspecified; Z86.79 Personal history of other diseases of the circulatory system; Z79.82 Long term (current) use of aspirin; Z79.899 Other long term (current) drug therapy
CPT/HCPCS: 36415; 70450-TC; 71045; 80053; 81000-TC; 82962; 83880; 84484; 85025; 85379; 85610-TC; 85730-TC; 93005; 99291

== ENCOUNTER 2019-08-05 10:17 | Outpatient (CLI) | payer OTHER, MEDICAID | END 2019-08-05 21:19 | disposition home or self-care (01) | LOC: SCT 10:17 | PROVIDERS: ATTEND Internal Medicine | DX: M19.011 Primary osteoarthritis, right shoulder (principal); M77.9 Enthesopathy, unspecified; I67.2 Cerebral atherosclerosis; G31.9 Degenerative disease of nervous system, unspecified | CPT/HCPCS: 70450-TC; 73030 ==

== ENCOUNTER 2019-12-07 10:28 | Emergency (ER) | payer OTHER, MEDICAID ==
[~2019-12-07] VITALS: Ht 165.1 cm; Wt 95.3 kg
--- NOTE | 2019-12-07 10:30 | NUR ---
MD FARIAS AT BEDSIDE ASSESSING PT.
--- NOTE | 2019-12-07 10:30 | NUR ---
PATIENT TO ER #4 WITH SPINNER IRON, SAO2 AND ABP
[2019-12-07] MEDS ORDERED: NACL 0.9% 1,000 ML IV ONE (10:32)
[2019-12-07 10:40] VITALS: BP_SYST 153
--- NOTE | 2019-12-07 10:40 | NUR ---
RN ASSESSING PT. PT STATES EPIGASTRIC PAIN SINCE LAST NIGHT. PT STATED SHE HAS NO IDEA WHY SHE HAS PAIN. PT STATED SHE HAS HAD 10 SURGERIES IN THE PAST. ON HER KNEES, OPEN HEART, AND ABDOMINAL. PT IS STABLE AND IN NO DISTRESS.
[2019-12-07] MEDS ORDERED: MAG HYDROX/AL HYDROX/SIMETH 30 ML, DICYCLOMINE HCL 20 MG, LIDOCAINE VISCOUS 2% 15ML (PO... PO ONE ×3 (10:45)
--- NOTE | 2019-12-07 11:00 | NUR ---
IV ACCESS TO THE LEFT AC 20G IN ONE ATTEMPT. BLOOD FOR LABS TAKEN SAME TIME.
[2019-12-07 11:02] LABS: BASOPHILS # (AUTO) 0.1 K/uL (0.0-0.2); BASOPHILS % (AUTO) 1.1 % (0.0-2.0); EOSINOPHILS # (AUTO) 0.2 K/uL (0.0-0.4); HEMATOCRIT 39.2 % (36-48); HEMOGLOBIN 12.4 g/dL (12.0-16.0); LYMPHOCYTES # (AUTO) 1.8 K/uL (1.0-5.5); LYMPHOCYTES % (AUTO) 22.4 % (20.5-51.5); MEAN CORPUSCULAR HEMOGLOBIN 22 pg (27-31); MEAN CORPUSCULAR HGB CONC 32 % (32-36); MEAN CORPUSCULAR VOLUME 69 fL (79.0-98.0); MONOCYTES # (AUTO) 0.6 K/uL (0.0-1.0); MONOCYTES % (AUTO) 7.6 % (1.7-9.3); NEUTROPHILS # (AUTO) 5.2 K/uL (1.8-7.7); NEUTROPHILS % (AUTO) 66.9 % (40.0-70.0); PLATELET COUNT (AUTO) 350 K/uL (130-430); RED BLOOD CELL COUNT(AUTO) 5.67 MIL/uL (4.2-6.2); RED CELL DISTRIBUTION WIDTH 19.7 % (9.0-15.0); WHITE BLOOD COUNT (AUTO) 7.8 K/uL (4.8-10.8)
[2019-12-07] MEDS ORDERED: CELE200C PO (11:23)
[2019-12-07] MEDS ORDERED: INSU3INS10 SUBQ (11:23)
[2019-12-07 11:24] LABS: ANION GAP 7 (5-15); CALCIUM 8.8 mg/dL (8.4-11.0); CHLORIDE 99 mmol/L (98-107); CREATININE 1.53 mg/dL (0.55-1.30); GLUCOSE 165 mg/dL (70-99); POTASSIUM 4.3 mmol/L (3.5-5.1); SODIUM SERUM 136 mmol/L (136-145); UREA NITROGEN, BLOOD 22 mg/dL (8-21)
[2019-12-07 11:26] LABS: INR 1.1 (0.8-1.2); PROTHROMBIN TIME 11.1 SECS (9.5-12.5)
[2019-12-07 11:28] LABS: ALANINE AMINOTRANSFERASE 22 U/L (12-78); AMYLASE 44 U/L (0-100); ASPARTATE AMINOTRANSFERASE 16 U/L (10-37); LIPASE 118 U/L (73-393); TOTAL BILIRUBIN 0.4 mg/dL (0.0-1.0)
--- NOTE | 2019-12-07 11:59 | NUR ---
PT HAS EXPRESSED SHE FEELS BETTER AND WANTS TO GO HOME. MD NOTIFIED.
--- NOTE | 2019-12-07 12:34 | NUR ---
SPOKE WITH DAUGHTER, SHE SAID TO CALL HER FOR P/U IF DC HOME. [phone]
[2019-12-07] MEDS ORDERED: DULO60CA65 PO (12:56)
[2019-12-07] MEDS ORDERED: MIRT45TA2 PO (12:56)
[2019-12-07] MEDS ORDERED: MELA10TA4 PO (12:56)
[2019-12-07] MEDS ORDERED: QUET200T PO (12:56)
[2019-12-07] MEDS ORDERED: ATOR20TA64 PO (12:56)
[2019-12-07 12:58] LABS: BILIRUBIN,URINE NEGATIVE (NEGATIVE); BLOOD, URINE NEGATIVE (NEGATIVE); CLARITY/URINE CLEAR (CLEAR); COLOR,URINE YELLOW (YELLOW); GLUCOSE,URINE 2+ (NEGATIVE); KETONES,URINE NEGATIVE (NEGATIVE); LEUKOCYTE ESTERASE ,URINE NEGATIVE (NEGATIVE); NITRITE, URINE NEGATIVE (NEGATIVE); PH,URINE 7.5 (5.0-8.0); PROTEIN URINE NEGATIVE (NEGATIVE); UROBILINOGEN,URINE 0.2 (0.2-1.0)
[2019-12-07 13:09] LABS: BACTERIA,URINE RARE /HPF (None Seen); RBC,URINE 0-3 /HPF (0-3); WBC,URINE 0-3 /HPF (0-3)
--- NOTE | 2019-12-07 14:28 | NUR ---
pt is being prepared for dc home. RN has called the daughter for p/u, she stated about 45 minutes.
--- NOTE | 2019-12-07 15:25 | NUR ---
Patient given written and verbal discharge instructions and verbalizes understanding. ER MD discussed with patient the results and treatment provided. Patient in stable condition. ID arm band removed. IV catheter removed intact and dressing applied, no active bleeding. Rx of pepcid and given. Patient educated on pain management and to follow up with PMD. Pain Scale 0/10 . Opportunity for questions provided and answered. Medication side effect fact sheet provided. daughter is here to pick her up.
[2019-12-07 15:42] VITALS: BP_SYST 145
== END 2019-12-07 15:42 | disposition home or self-care (01) ==
LOC: SED 10:28
DX: K27.9 Peptic ulcer, site unspecified, unspecified as acute or chronic, without hemorrhage or perforation (principal); R10.13 Epigastric pain; I10 Essential (primary) hypertension; I51.9 Heart disease, unspecified; E78.00 Pure hypercholesterolemia, unspecified; E11.9 Type 2 diabetes mellitus without complications; E07.9 Disorder of thyroid, unspecified; Z79.899 Other long term (current) drug therapy; Z79.82 Long term (current) use of aspirin
CPT/HCPCS: 36415; 71045; 80053; 81000; 82150; 82550; 83605; 83690; 84484; 85025; 85610; 85730; 87040; 93005; 99285; J2001; J7030

== ENCOUNTER 2020-08-27 08:41 | Emergency (ER) | payer OTHER, MEDICAID ==
[~2020-08-27] VITALS: Ht 165.1 cm; Wt 95.3 kg
[2020-08-27 08:41] VITALS: BP_SYST 184
[~2020-08-27 08:41] MED LIST changes: -ASPI-1153 PO; +ASPI-1393 PO; +ATOR20TA64 PO; +CELE200C PO; +DULO60CA65 PO; -GLIP10TA11 PO; -INSU100I24 SQ; +INSU3INS10 SUBQ; -LINA5TAB2 PO; +MELA10TA4 PO; +MIRT45TA2 PO; -MORP15TA60 PO; +OMEP40CA13 PO; -OMEP40CA33 PO; +QUET200T PO
[2020-08-27] MEDS ORDERED: MAG HYDROX/AL HYDROX/SIMETH 30 ML, DICYCLOMINE HCL 20 MG, LIDOCAINE VISCOUS 2% 15ML (PO... PO ONE ×3 (09:30)
[2020-08-27] MEDS ORDERED: ACETAMINOPHEN 325 MG TABLET PO ONE (09:30)
[2020-08-27 09:55] LABS: BASOPHILS # (AUTO) 0.1 K/uL (0.0-0.2); BASOPHILS % (AUTO) 1.4 % (0.0-2.0); EOSINOPHILS # (AUTO) 0.2 K/uL (0.0-0.4); HEMATOCRIT 35.9 % (36-48); HEMOGLOBIN 11.3 g/dL (12.0-16.0); LYMPHOCYTES # (AUTO) 1.9 K/uL (1.0-5.5); LYMPHOCYTES % (AUTO) 24.9 % (20.5-51.5); MEAN CORPUSCULAR HEMOGLOBIN 22 pg (27-31); MEAN CORPUSCULAR HGB CONC 32 % (32-36); MEAN CORPUSCULAR VOLUME 69 fL (79.0-98.0); MONOCYTES # (AUTO) 0.7 K/uL (0.0-1.0); MONOCYTES % (AUTO) 8.7 % (1.7-9.3); NEUTROPHILS # (AUTO) 4.8 K/uL (1.8-7.7); PLATELET COUNT (AUTO) 312 K/uL (130-430); RED BLOOD CELL COUNT(AUTO) 5.24 MIL/uL (4.2-6.2); RED CELL DISTRIBUTION WIDTH 18.4 % (9.0-15.0); WHITE BLOOD COUNT (AUTO) 7.7 K/uL (4.8-10.8)
[2020-08-27 10:02] LABS: ANION GAP 10 (5-15); CALCIUM 9.1 mg/dL (8.4-11.0); CHLORIDE 98 mmol/L (98-107); CREATININE 1.75 mg/dL (0.55-1.30); GLUCOSE 295 mg/dL (70-99); POTASSIUM 4.3 mmol/L (3.5-5.1); SODIUM SERUM 133 mmol/L (136-145); UREA NITROGEN, BLOOD 33 mg/dL (8-21)
[2020-08-27 10:14] LABS: ALANINE AMINOTRANSFERASE 33 U/L (12-78); ALBUMIN 3.8 g/dL (3.4-4.8); ASPARTATE AMINOTRANSFERASE 25 U/L (10-37); LIPASE 359 U/L (73-393); TOTAL BILIRUBIN 0.3 mg/dL (0.0-1.0)
[2020-08-27] MEDS ORDERED: ANT30 PO (11:25)
[2020-08-27 11:41] VITALS: BP_SYST 147
== END 2020-08-27 11:41 | disposition home or self-care (01) ==
LOC: SED 08:41
DX: R10.10 Upper abdominal pain, unspecified (principal)
CPT/HCPCS: 36415; 73030; 80053; 83690-TC; 84484; 85025; 93005; 99285

== ENCOUNTER 2023-07-19 16:13 | Emergency (ER) | payer OTHER, MEDICAID ==
[~2023-07-19] VITALS: Ht 160 cm; Wt 87.5 kg
[~2023-07-19 16:13] MED LIST changes: +ANT30 PO; +MELA10TA PO; -MELA10TA4 PO; +MIRT-91 PO; -MIRT15TA7 PO; +OLME-36 PO; -OLME1TAB16 PO; -OMEP40CA13 PO; +OMEP40CA20 PO; -QUET100T33 PO; +QUET100T34 PO
[2023-07-19 16:33] VITALS: BP_SYST 146; PULSE 79; RESP 16; TEMP 96.1; O2SAT 99
[2023-07-19] MEDS ORDERED: TRANEXAMIC ACID 1,000 MG/10 ML VIAL TP ONE (17:45)
[2023-07-19] MEDS: OXYMETAZOLINE HCL 0.05% NASAL SPRAY NS PRN ×2 (17:54→18:22)
[2023-07-19 18:52] LABS: BASOPHILS # (AUTO) 0.1 K/uL (0.0-0.2); BASOPHILS % (AUTO) 1.5 % (0.0-2.0); EOSINOPHILS # (AUTO) 0.2 K/uL (0.0-0.4); EOSINOPHILS % (AUTO) 2.9 % (0.0-4.0); HEMATOCRIT 48.8 % (36-48); HEMOGLOBIN 16.5 g/dL (12.0-16.0); INR 1.1 (0.8-1.2); LYMPHOCYTES # (AUTO) 2.5 K/uL (1.0-5.5); LYMPHOCYTES % (AUTO) 35.3 % (20.5-51.5); MEAN CORPUSCULAR HEMOGLOBIN 29 pg (27-31); MEAN CORPUSCULAR HGB CONC 34 % (32-36); MEAN CORPUSCULAR VOLUME 87 fL (79.0-98.0); MONOCYTES # (AUTO) 0.6 K/uL (0.0-1.0); MONOCYTES % (AUTO) 8.4 % (1.7-9.3); NEUTROPHILS # (AUTO) 3.7 K/uL (1.8-7.7); NEUTROPHILS % (AUTO) 51.9 % (40.0-70.0); PLATELET COUNT (AUTO) 236 K/uL (130-430); PROTHROMBIN TIME 11.8 SECS (9.5-12.5); RED BLOOD CELL COUNT(AUTO) 5.64 MIL/uL (4.2-6.2); RED CELL DISTRIBUTION WIDTH 14.7 % (9.0-15.0); WHITE BLOOD COUNT (AUTO) 7.2 K/uL (4.8-10.8)
[2023-07-19 19:59] VITALS: BP_SYST 146; PULSE 79; RESP 16; TEMP 96.1; O2SAT 99
== END 2023-07-19 19:59 | disposition home or self-care (01) ==
LOC: SED 16:13
DX: R04.0 Epistaxis (principal); E11.9 Type 2 diabetes mellitus without complications; I10 Essential (primary) hypertension; Z79.4 Long term (current) use of insulin; Z79.899 Other long term (current) drug therapy
CPT/HCPCS: 99283; 85025; 85610; 85730; 36415; J3490

== ENCOUNTER 2024-03-28 17:45 | Emergency (ER) | payer OTHER, MEDICAID ==
[~2024-03-28] VITALS: Ht 160 cm; Wt 88.5 kg
[~2024-03-28 17:45] MED LIST changes: -GLIP10TA PO; +GLIP10TA2 PO; -MIRT45TA2 PO; +MIRT45TA90 PO
[2024-03-28 17:50] VITALS: BP_SYST 169; PULSE 88; RESP 18; TEMP 97.6; O2SAT 99
[2024-03-28 19:14] LABS: BASOPHILS # (AUTO) 0.1 K/uL (0.0-0.2); BASOPHILS % (AUTO) 1.1 % (0.0-2.0); EOSINOPHILS # (AUTO) 0.2 K/uL (0.0-0.4); EOSINOPHILS % (AUTO) 1.6 % (0.0-4.0); HEMATOCRIT 47.8 % (36-48); HEMOGLOBIN 16.5 g/dL (12.0-16.0); LYMPHOCYTES # (AUTO) 1.4 K/uL (1.0-5.5); LYMPHOCYTES % (AUTO) 12.4 % (20.5-51.5); MEAN CORPUSCULAR HEMOGLOBIN 30 pg (27-31); MEAN CORPUSCULAR HGB CONC 35 % (32-36); MEAN CORPUSCULAR VOLUME 86 fL (79.0-98.0); MONOCYTES # (AUTO) 0.6 K/uL (0.0-1.0); NEUTROPHILS % (AUTO) 79.9 % (40.0-70.0); PLATELET COUNT (AUTO) 254 K/uL (130-430); RED BLOOD CELL COUNT(AUTO) 5.56 MIL/uL (4.2-6.2); RED CELL DISTRIBUTION WIDTH 15.8 % (9.0-15.0); WHITE BLOOD COUNT (AUTO) 11.3 K/uL (4.8-10.8)
[2024-03-28 19:28] LABS: ALANINE AMINOTRANSFERASE 32 U/L (12-78); ALBUMIN 3.8 g/dL (3.4-4.8); ANION GAP 12 (5-15); ASPARTATE AMINOTRANSFERASE 22 U/L (10-37); CARBON DIOXIDE 26 mmol/L (23-29); CHLORIDE 101 mmol/L (98-107); CREATININE 1.85 mg/dL (0.55-1.30); GLUCOSE 191 mg/dL (74-106); POTASSIUM 4.4 mmol/L (3.5-5.1); SODIUM SERUM 139 mmol/L (136-145); TOTAL BILIRUBIN 0.7 mg/dL (0.0-1.0); TOTAL PROTEIN, SERUM 7.9 g/dL (6.4-8.3); UREA NITROGEN, BLOOD 29 mg/dL (8-21)
[2024-03-28 19:30] LABS: LIPASE 33 U/L (16-77)
[2024-03-28 21:30] LABS: BILIRUBIN,URINE NEGATIVE (NEGATIVE); BLOOD, URINE 3+ (NEGATIVE); CLARITY/URINE SL CLOUDY (CLEAR); COLOR,URINE YELLOW (YELLOW); GLUCOSE,URINE 3+ (NEGATIVE); KETONES,URINE NEGATIVE (NEGATIVE); LEUKOCYTE ESTERASE ,URINE TRACE (NEGATIVE); NITRITE, URINE NEGATIVE (NEGATIVE); PH,URINE 7.5 (5.0-8.0); PROTEIN URINE 1+ (NEGATIVE)
[2024-03-28 21:39] LABS: BACTERIA,URINE MANY /HPF (None Seen); MUCUS,URINE None Seen /LPF (None Seen); RBC,URINE 50-80 /HPF (0-3)
[2024-03-28] MEDS ORDERED: NITR-85 PO (22:28)
[2024-03-28 22:47] VITALS: BP_SYST 169; PULSE 88; RESP 18; TEMP 97.6; O2SAT 99
== END 2024-03-28 22:47 | disposition home or self-care (01) ==
LOC: SED 17:45
DX: K59.00 Constipation, unspecified (principal); I10 Essential (primary) hypertension; E11.9 Type 2 diabetes mellitus without complications; E78.00 Pure hypercholesterolemia, unspecified; F32.A Depression, unspecified; Z90.49 Acquired absence of other specified parts of digestive tract; Z90.710 Acquired absence of both cervix and uterus; Z79.899 Other long term (current) drug therapy; Z79.2 Long term (current) use of antibiotics
CPT/HCPCS: 36415; 80053; 81000; 81001; 81015; 83690; 84484; 85025; 87086; 93005; 99284

== ENCOUNTER 2024-04-02 00:56 | Inpatient (IN) | payer OTHER, MEDICAID ==
[~2024-04-02] VITALS: Ht 162.6 cm; Wt 83.5 kg
[~2024-04-02 00:56] MED LIST changes: +NITR-85 PO
[2024-04-02 01:06] VITALS: BP_SYST 126; PULSE 63; RESP 16; TEMP 97.1; O2SAT 100
[2024-04-02] MEDS: NACL 0.9% 1,000 ML IV ONE (01:58)
[2024-04-02 02:11] LABS: BASOPHILS # (AUTO) 0.1 K/uL (0.0-0.2); BASOPHILS % (AUTO) 0.7 % (0.0-2.0); EOSINOPHILS # (AUTO) 0.1 K/uL (0.0-0.4); EOSINOPHILS % (AUTO) 1.3 % (0.0-4.0); HEMATOCRIT 47.8 % (36-48); HEMOGLOBIN 16.3 g/dL (12.0-16.0); LYMPHOCYTES # (AUTO) 1.5 K/uL (1.0-5.5); LYMPHOCYTES % (AUTO) 13.8 % (20.5-51.5); MEAN CORPUSCULAR HEMOGLOBIN 30 pg (27-31); MEAN CORPUSCULAR HGB CONC 34 % (32-36); MEAN CORPUSCULAR VOLUME 87 fL (79.0-98.0); MONOCYTES # (AUTO) 0.6 K/uL (0.0-1.0); MONOCYTES % (AUTO) 5.8 % (1.7-9.3); NEUTROPHILS # (AUTO) 8.3 K/uL (1.8-7.7); NEUTROPHILS % (AUTO) 78.4 % (40.0-70.0); PLATELET COUNT (AUTO) 269 K/uL (130-430); RED BLOOD CELL COUNT(AUTO) 5.47 MIL/uL (4.2-6.2); RED CELL DISTRIBUTION WIDTH 15.7 % (9.0-15.0); WHITE BLOOD COUNT (AUTO) 10.6 K/uL (4.8-10.8)
[2024-04-02 02:34] LABS: ALANINE AMINOTRANSFERASE 26 U/L (12-78); ANION GAP 8 (5-15); ASPARTATE AMINOTRANSFERASE 26 U/L (10-37); BILIRUBIN,DIRECT 0.1 mg/dL (0.0-0.3); CALCIUM 9.5 mg/dL (8.4-11.0); CARBON DIOXIDE 29 mmol/L (23-29); CHLORIDE 103 mmol/L (98-107); GLUCOSE 205 mg/dL (74-106); POTASSIUM 4.6 mmol/L (3.5-5.1); SODIUM SERUM 140 mmol/L (136-145); TOTAL BILIRUBIN 0.6 mg/dL (0.0-1.0); TOTAL PROTEIN, SERUM 8.1 g/dL (6.4-8.3); UREA NITROGEN, BLOOD 35 mg/dL (8-21)
[2024-04-02 02:46] LABS: BILIRUBIN,URINE NEGATIVE (NEGATIVE); BLOOD, URINE NEGATIVE (NEGATIVE); COLOR,URINE YELLOW (YELLOW); GLUCOSE,URINE 3+ (NEGATIVE); KETONES,URINE NEGATIVE (NEGATIVE); LEUKOCYTE ESTERASE ,URINE NEGATIVE (NEGATIVE); NITRITE, URINE NEGATIVE (NEGATIVE); PH,URINE 6.5 (5.0-8.0); PROTEIN URINE 2+ (NEGATIVE); UROBILINOGEN,URINE 0.2 (0.2-1.0)
[2024-04-02] MEDS ORDERED: EMPA10TA PO (02:50)
[2024-04-02] MEDS ORDERED: CARV25TA55 PO (02:50)
[2024-04-02] MEDS ORDERED: ARIP2TAB66 PO (02:50)
[2024-04-02 03:02] LABS: CLARITY/URINE HAZY (CLEAR); RBC,URINE 0-3 /HPF (0-3); WBC,URINE 0-3 /HPF (0-3)
[2024-04-02 03:03] LABS: BACTERIA,URINE None Seen /HPF (None Seen)
[2024-04-02] MEDS: D5NS 1,000 ML IV SCH (04:57)
[2024-04-02] MEDS ORDERED: ISOS60TA71 PO (07:20)
[2024-04-02] MEDS ORDERED: MIRT45TA83 PO (07:23)
[2024-04-02] MEDS ORDERED: LEVO137C4 PO (10:35)
[2024-04-02] MEDS: ATORVASTATIN 20 MG TABLET PO ONE (11:15)
[2024-04-02] MEDS: ISOSORBIDE MONONITRATE 30 MG TAB.ER.24H PO ONE (11:17)
[2024-04-02] MEDS: ARIPiprazole 2 MG TAB PO ONE (11:17)
[2024-04-02] MEDS: CARVEDILOL 25 MG TABLET (COREG) PO ONE (11:18)
[2024-04-02] MEDS: POLYETHYLENE GLYCOL 3350, 17 GM/ POWD.PACK PO ONE (11:24)
[2024-04-02] MEDS: ASPIRIN 81 MG TABLET(ECOTRIN) PO ONE (11:24)
[2024-04-02] MEDS: EMPAGLIFLOZIN 10 MG TABLET PO ONE (11:25)
[2024-04-02 13:30] VITALS: BP_SYST 144; PULSE 81; RESP 20; TEMP 97.2; O2SAT 100
[2024-04-02] MEDS: LEVOTHYROXINE SODIUM 0.1 MG TABLET PO ONE (14:10)
[2024-04-02 16:00] VITALS: BP_SYST 147; PULSE 85; RESP 18; TEMP 97.4; O2SAT 100
[2024-04-02 20:00] VITALS: BP_SYST 127; PULSE 74; RESP 18; TEMP 97.4; O2SAT 99
[2024-04-02] MEDS: MELATONIN 3 MG TABLET PO PRN (20:52)
[2024-04-02] MEDS: MIRTAZAPINE 15 MG TABLET PO SCH (20:52)
[2024-04-02] MEDS: CARVEDILOL 25 MG TABLET (COREG) PO SCH (20:53)
[2024-04-03 01:05] VITALS: BP_SYST 139; PULSE 77; RESP 17; TEMP 97.1; O2SAT 99
[2024-04-03] MEDS: LEVOTHYROXINE SODIUM 0.1 MG TABLET PO SCH (06:32)
[2024-04-03 07:45] VITALS: BP_SYST 135; PULSE 71; RESP 14; TEMP 96.9; O2SAT 97
[2024-04-03 08:22] LABS: ALANINE AMINOTRANSFERASE 24 U/L (12-78); ALBUMIN 3.4 g/dL (3.4-4.8); ANION GAP 10 (5-15); ASPARTATE AMINOTRANSFERASE 24 U/L (10-37); CALCIUM 8.5 mg/dL (8.4-11.0); CARBON DIOXIDE 26 mmol/L (23-29); CHLORIDE 104 mmol/L (98-107); CREATININE 1.46 mg/dL (0.55-1.30); GLUCOSE 144 mg/dL (74-106); POTASSIUM 4.6 mmol/L (3.5-5.1); SODIUM SERUM 140 mmol/L (136-145); UREA NITROGEN, BLOOD 23 mg/dL (8-21)
[2024-04-03] MEDS: EMPAGLIFLOZIN 10 MG TABLET PO SCH (09:00)
[2024-04-03] MEDS: POLYETHYLENE GLYCOL 3350, 17 GM/ POWD.PACK PO SCH (09:00)
[2024-04-03] MEDS: ARIPiprazole 2 MG TAB PO SCH (09:34)
[2024-04-03] MEDS: ISOSORBIDE MONONITRATE 30 MG TAB.ER.24H PO SCH (09:34)
[2024-04-03] MEDS: ASPIRIN 81 MG TABLET(ECOTRIN) PO SCH (09:34)
[2024-04-03] MEDS: ATORVASTATIN 20 MG TABLET PO SCH (09:35)
[2024-04-03] MEDS: 0.45% NACL 1,000 ML IV SCH (12:00)
[2024-04-03 12:44] VITALS: BP_SYST 133; PULSE 70; RESP 16; TEMP 97.4; O2SAT 98
[2024-04-03 16:44] VITALS: BP_SYST 136; PULSE 75; RESP 16; TEMP 97.8; O2SAT 99
[2024-04-03 20:00] VITALS: BP_SYST 168; PULSE 81; RESP 20; TEMP 98.4; O2SAT 98; O2SAT 99
[2024-04-03] MEDS ORDERED: D5W 1,000 ML IV PRN (22:45)
[2024-04-03] MEDS ORDERED: GLUCOSE (DEXTROSE) ORAL GEL -Adults PO PRN (22:45)
[2024-04-03] MEDS ORDERED: DEXTROSE 50% JECT 50 ML DISP.SYRIN IVP PRN (22:45)
[2024-04-04 01:15] VITALS: RESP 20; TEMP 97.2; O2SAT 97
[2024-04-04 01:22] VITALS: BP_SYST 140; PULSE 80; RESP 18; TEMP 98.1; O2SAT 99
[2024-04-04 08:16] LABS: ANION GAP 10 (5-15); CALCIUM 8.5 mg/dL (8.4-11.0); CARBON DIOXIDE 23 mmol/L (23-29); CHLORIDE 106 mmol/L (98-107); CREATININE 1.39 mg/dL (0.55-1.30); GLUCOSE 142 mg/dL (74-106); SODIUM SERUM 139 mmol/L (136-145); UREA NITROGEN, BLOOD 23 mg/dL (8-21)
[2024-04-04 09:00] VITALS: O2SAT 99
[2024-04-04 14:20] VITALS: BP_SYST 118; PULSE 77; RESP 19; TEMP 98.2; O2SAT 100
[2024-04-04 17:05] VITALS: BP_SYST 153; PULSE 76; RESP 18; TEMP 98.3; O2SAT 99
[2024-04-04] MEDS: INSULIN LISPRO SLIDING SCALE 100 UNITS/ML, 3 ML VIAL (humaLOG) SUBCUT PRN (19:54)
[2024-04-04 20:25] VITALS: BP_SYST 157; PULSE 88; RESP 20; TEMP 96.9; O2SAT 98
[2024-04-04] MEDS: QUEtiapine FUMARATE 25 MG TABLET PO SCH (20:43)
[2024-04-04] MEDS: LORazepam 2 MG/ML VIAL IVP ONE (21:21)
[2024-04-05 00:38] VITALS: BP_SYST 120; PULSE 74; RESP 16; TEMP 97.1; O2SAT 98
[2024-04-05 08:00] VITALS: BP_SYST 122; PULSE 69; RESP 18; TEMP 97.6; O2SAT 99
[2024-04-05 08:21] LABS: BASOPHILS # (AUTO) 0.1 K/uL (0.0-0.2); EOSINOPHILS # (AUTO) 0.2 K/uL (0.0-0.4); EOSINOPHILS % (AUTO) 1.5 % (0.0-4.0); HEMATOCRIT 43.5 % (36-48); HEMOGLOBIN 14.6 g/dL (12.0-16.0); LYMPHOCYTES # (AUTO) 2.7 K/uL (1.0-5.5); LYMPHOCYTES % (AUTO) 25.8 % (20.5-51.5); MEAN CORPUSCULAR HEMOGLOBIN 29 pg (27-31); MEAN CORPUSCULAR HGB CONC 34 % (32-36); MEAN CORPUSCULAR VOLUME 87 fL (79.0-98.0); MONOCYTES # (AUTO) 1.2 K/uL (0.0-1.0); MONOCYTES % (AUTO) 11.7 % (1.7-9.3); NEUTROPHILS # (AUTO) 6.3 K/uL (1.8-7.7); PLATELET COUNT (AUTO) 261 K/uL (130-430); RED BLOOD CELL COUNT(AUTO) 4.99 MIL/uL (4.2-6.2); RED CELL DISTRIBUTION WIDTH 15.9 % (9.0-15.0); WHITE BLOOD COUNT (AUTO) 10.6 K/uL (4.8-10.8)
[2024-04-05 08:41] LABS: ANION GAP 12 (5-15); CALCIUM 8.1 mg/dL (8.4-11.0); CARBON DIOXIDE 23 mmol/L (23-29); CHLORIDE 104 mmol/L (98-107); CREATININE 1.67 mg/dL (0.55-1.30); GLUCOSE 144 mg/dL (74-106); POTASSIUM 3.7 mmol/L (3.5-5.1); SODIUM SERUM 139 mmol/L (136-145); UREA NITROGEN, BLOOD 32 mg/dL (8-21)
[2024-04-05 09:40] VITALS: O2SAT 99
[2024-04-05] MEDS ORDERED: 0.45% NACL 1,000 ML IV SCH (11:00)
[2024-04-05] MEDS ORDERED: MELA3TAB41 PO (11:42)
[2024-04-05] MEDS ORDERED: SER25 PO (11:42)
[2024-04-05] MEDS ORDERED: INSU100V10 SQ (11:50)
[2024-04-05] MEDS ORDERED: INSU100V9 SQ (11:50)
[2024-04-05] MEDS ORDERED: [UNRECOGNIZED DRUG - CODE] TP (11:50)
[2024-04-05 14:55] VITALS: BP_SYST 111; PULSE 74; RESP 18; TEMP 98; O2SAT 98
[2024-04-05] MEDS ORDERED: ARIP5TAB10 PO (15:10)
== END 2024-04-05 15:15 | disposition home health service (06) | DRG 639 ==
LOC: SED 00:56 → STU 04:04 → SMU 04-03 10:00
PROVIDERS: ADMIT Student in an Organized Health Care Education/Training Program; ATTEND Specialist
DX: E11.649 Type 2 diabetes mellitus with hypoglycemia without coma (principal); N17.9 Acute kidney failure, unspecified; E78.00 Pure hypercholesterolemia, unspecified; E03.9 Hypothyroidism, unspecified; I12.9 Hypertensive chronic kidney disease with stage 1 through stage 4 chronic kidney disease, or unspecified chronic kidney disease; E11.22 Type 2 diabetes mellitus with diabetic chronic kidney disease; N18.9 Chronic kidney disease, unspecified; E11.21 Type 2 diabetes mellitus with diabetic nephropathy; Z79.4 Long term (current) use of insulin; Z86.73 Personal history of transient ischemic attack (TIA), and cerebral infarction without residual deficits
CPT/HCPCS: 36415; 71045; 76770; 80048; 80053; 80076; 81000; 81001; 81015; 82948; 83037; 83605; 84436; 84443; 85025; 87040; 87045-TC; 87046; 87230; 93005; 97110-GP; 97116-GP; 97530-GP; 99291; G0378; J2060